=== PATIENT | male | born 1995 | race Caucasian/White ===

== ENCOUNTER 2023-02-21 11:25 | Emergency (ER) | payer BC ==
[~2023-02-21] VITALS: Ht 172.7 cm; Wt 65.8 kg
[2023-02-21 11:33] VITALS: O2SAT 97
[2023-02-21 12:04] VITALS: BP 127/76; PULSE 98; RESP 16
[2023-02-21 12:07] LABS: BASOPHILS # (AUTO) 0.06 K/uL (0.00-0.20); BASOPHILS % (AUTO) 0.4 % (0.0-5.0); EOSINOPHILS # (AUTO) 0.26 K/uL (0.00-0.70); EOSINOPHILS % (AUTO) 1.8 % (0.0-8.0); HEMATOCRIT 46.4 % (42-54); IMMATURE GRANULOCYTE ABSOLUTE 0.05 K/uL (0-1); LYMPHOCYTES # (AUTO) 5.4 K/uL (1.0-4.8); LYMPHOCYTES % (AUTO) 36.5 % (21.0-51.0); MEAN CORPUSCULAR HEMOGLOBIN 30.4 pg (27.0-33.0); MEAN CORPUSCULAR HGB CONC 31.9 g/dL (32.0-36.0); MEAN CORPUSCULAR VOLUME 95.3 fL (79-99); MONOCYTES # (AUTO) 0.9 K/uL (0.1-1.0); MONOCYTES % (AUTO) 6.3 % (3.0-13.0); NEUTROPHILS % (AUTO) 54.7 % (40.0-77.0); PLATELET COUNT (AUTO) 287 K/uL (130-400); RED BLOOD CELL COUNT(AUTO) 4.87 MIL/uL (4.50-6.20); RED CELL DISTRIBUTION WIDTH 13.5 % (11.0-15.5); WHITE BLOOD COUNT (AUTO) 14.7 K/uL (4.8-10.8)
[2023-02-21 12:27] LABS: ALBUMIN 4.6 g/dL (3.5-5.0); BILIRUBIN,TOTAL 0.5 mg/dL (0.2-1.0); CREATININE 1.1 mg/dL (0.5-1.5); POTASSIUM 3.1 mmol/L (3.5-5.1); TOTAL PROTEIN, SERUM 8.9 g/dL (6.0-8.3)
== END 2023-02-21 14:42 | disposition left against medical advice (07) ==
LOC: EDH 11:25 → EDBD 11:25 → EDH 14:42
DX: R41.82 Altered mental status, unspecified (principal)
CPT/HCPCS: 36415; 80053; 85025